=== PATIENT | female | born 1965 | race Caucasian/White ===

== ENCOUNTER 2016-07-24 17:17 | Emergency (ER) | payer OTHER ==
[2016-07-24 18:13] LABS: BASOPHIL% 0.2 % (0-2.5); EOSINOPHIL% 0.3 % (0.0-7.0); HEMATOCRIT 30.6 % (35.0-45.0); HEMOGLOBIN 9.7 gm/dL (12.0-16.0); LYMPHOCYTE# 1.1 X10e3 (1.0-3.5); LYMPHOCYTE% 9.2 % (17.0-45.0); MEAN CORPUSCULAR HEMOGLOBIN 25.5 PG (28-34); MEAN CORPUSCULAR HGB CONC 31.8 g/dL (30-36); MEAN PLATELET VOLUME 6.8 FL (6.5-11.5); MONOCYTE# 1.1 X10e3 (0-1.0); MONOCYTE% 9.2 % (3.0-12.0); NEUTROPHIL# 9.4 X10e3 (1.5-7.1); NEUTROPHIL% 81.1 % (40-75); PLATELET COUNT 455 X10e3 (140-420); RED BLOOD COUNT 3.83 X10e (3.90-5.30); WHITE BLOOD COUNT 11.6 X10e3 (4.0-10.5)
[2016-07-24 18:14] LABS: DIFF IND YES
[2016-07-24 18:38] LABS: ALBUMIN SERUM 2.2 g/dL (3.5-5.0); ALKALINE PHOSPHATASE 86 U/L (32-92); ALT (SGPT) 48 U/L (10-40); AST (SGOT) 32 U/L (10-42); BILIRUBIN, DIRECT <0.1 mg/dL (0.0-0.2); BILIRUBIN,INDIRECT 0.7 mg/dL (0.0-0.9); BILIRUBIN,TOTAL 0.8 mg/dL (0.2-2.0); BLOOD UREA NITROGEN 12 mg/dL (9-23); BUN/CREATININE RATIO 9.23; CARBON DIOXIDE 21 mmol/L (22-31); CHLORIDE 90 mmol/L (100-111); CREATININE SERUM 1.3 mg/dL (0.6-1.4); GLOM FILT RATE Estimated 46.8 mL/min (>60); GLUCOSE FASTING 113 mg/dL (70-110); LIPASE 25 U/L (22-51); POTASSIUM 3.1 mmol/L (3.5-5.1); PROTEIN TOTAL SERUM 6.4 g/dL (6.0-8.3); SODIUM 128 mmol/L (135-145)
[2016-07-24 18:40] LABS: URINE SOURCE CLEAN CATCH
[2016-07-24 18:41] LABS: PLATELET ESTIMATE INCREASED (NORMAL)
[2016-07-24 18:42] LABS: HYPOCHROMIA SL
[2016-07-24 18:55] LABS: URINE APPEARANCE CLEAR; URINE BILIRUBIN NEG (NEG); URINE BLOOD 2+ (NEG); URINE COLOR YELLOW; URINE GLUCOSE NEG (NEG); URINE KETONE 1+ (NEG); URINE LEUKOCYTE ESTERASE TRACE (NEG); URINE NITRATE NEG (NEG); URINE PH 5.5 (5-8); URINE PROTEIN 1+ (NEG); URINE SPECIFIC GRAVITY 1.011 (1.003-1.035); URINE UROBILINOGEN 0.2 MG/DL (NEG)
[2016-07-24 18:58] LABS: CULTURE INDICATED? YES; URINE BACTERIA AUWI 2+ (NEGATIVE); URINE SQUAMOUS EPITHELIAL CELL MOD /[HPF]
== END 2016-07-24 21:17 | disposition home or self-care (01) ==
LOC: CED 17:17
PROVIDERS: Emergency Medicine
DX: K52.9 Noninfective gastroenteritis and colitis, unspecified (principal)
CPT/HCPCS: 36415; 80048; 80076; 81003; 83690; 85025; 87045; 87086; 87177; 87209; 87427; 87493; 87899; 96361; 96374; 99284; J2765

== ENCOUNTER 2016-08-07 03:58 | Inpatient (IN) | payer OTHER ==
--- NOTE | ~2016-08-07 | CO ---
Unit #: [id number] #: [id number] Patient: ALAN LAST [id number] [address] [address] [id number] I MR#: [id number] NAME: ALAN LAST ROOM: 50414 Age: 51 Sex: F Admission Date: 08/07/2016 : 1965 Attending Physician: Hayley Hernandez M.D. Primary Care Physician: No Primary Care Physician Requesting Physician: Hayley Hernandez M.D. Consultation Date: 08/07/2016 CONSULTATION REPORT REASON FOR CONSULTATION C-diff colitis and sepsis. HISTORY OF PRESENT ILLNESS This is a 51-year-old female with no known medical history. She does not routinely see a physician. The patient is not on any routine medications at home. The patient works as a nurse in the palliative care center. The patient reports that several weeks ago she diagnosed herself with left lower extremity erythema and cellulitis and took antibiotics at home that were not prescribed for her or for this infection. The patient then subsequently developed diarrhea and came to [facility] emergency room at the end of June. The patient was presumptively diagnosed with c-diff colitis. However, her c-diff studies were negative. She was sent home on p.o. Flagyl, but continued to have diarrhea. The patient then developed increasing abdominal cramps, sweats and chills and increasing diarrhea with bright red blood per rectum. The patient reports greater than four times per day of stool. The patient did also have some episodes of anorexia. The patient is now admitted through the emergency room. She is noted to have leukocytosis, febrile at 101 degrees Fahrenheit. She is not hypotensive. She is noted to have some acute kidney injury with a creatinine greater than 2.9. This is likely related to dehydration subsequent to diarrhea. The patient also is noted to have elevated lactic acid level of 5. PAST MEDICAL HISTORY None. PAST SURGICAL HISTORY None. SOCIAL HISTORY Not known. ALLERGIES No known drug allergies. CURRENT MEDICATIONS The patient does not take any routine medications, but she did take an unknown antibiotic at home. The patient was recently on Flagyl times 11 days, given to her at the end of June for presumptive c-diff colitis. The patient is currently on IV Flagyl, p.o. vancomycin and was given one dose of IV vancomycin since admission. REVIEW OF SYSTEMS Unit #: [id number] #: [id number] Patient: ALAN LAST The patient was somewhat confused to date earlier this day, however, she is able to answer some questions with help from her family members. Her review of systems is somewhat limited, so please refer to the patient's history of present illness. PHYSICAL EXAMINATION GENERAL: This is an in no apparent distress female who appears alert and calm during my exam. VITALS: Temperature 101 degrees Fahrenheit, pulse 100, blood pressure 149/92, respiratory rate 18. HEENT: Her pupils are equal. Her neck is supple. LUNGS: Clear to auscultation. Diminished in the bases. No wheezes or rhonchi noted. HEART: S1 and S2, with tachycardia. ABDOMEN: Positive bowel sounds. Soft. No organomegaly appreciated. There is no significant distension or tenderness noted at this time. EXTREMITIES: Lower extremity edema, left greater than right, without any open wounds or significant erythema. DIAGNOSTIC STUDIES IMAGING: There is no diagnostic imaging currently on this patient. LABORATORY: BUN 60, creatinine 2.5, sodium 132, potassium 4.7, chloride 102, CO2 15, bilirubin 0.7, AST 23, ALT 15, ammonia 19, lactic acid 5.0, INR 1.8, white blood cell count 17, which is improved from 22,000 on admission, hemoglobin 7.6, hematocrit 25.2, platelets 346. Ova and parasites are pending. Urinalysis is currently pending. Microbiology data, blood cultures are pending. Stool culture is pending. Stool for c-diff is pending. Urine culture on 07/24/2016 urine culture is negative. Stool culture was negative for Shigatoxin culture, campylobacter and clostridium difficile. ASSESSMENT This is a 51-year-old female with no known medical history, but recently took antibiotics for suspected self-diagnosed left lower extremity cellulitis with an antibiotic that was not prescribed to her and was not given to her for this diagnosis. The patient subsequently developed diarrhea and was treated for presumptive c-diff colitis. However, c-diff toxin was negative. The patient did not improve despite 11 days of oral Flagyl. The patient now has continued diarrhea with bright red blood per rectum, lactic acidosis, leukocytosis and acute kidney injury. At this time unclear if the patient actually has c-diff colitis as her initial study was negative. Agree with GI consult as the patient may require a scope. At this time would like to check a CT scan with p.o. contrast only and continue IV Flagyl and p.o. vancomycin. Will follow the patient's stool cultures and c-diff results. The patient's lower extremities appear to be related more to venous stasis and lymphedema rather than cellulitis. At this time would like to avoid other antibiotics as it can make potential c-diff colitis much worse. The patient currently has stable blood pressure and she is more oriented after hydration than when first admitted. However, will need to follow up closely for developing signs of sepsis and shock. This case was discussed in detail with Dr. Joaquin Michel, who would also like the patient to remain in contact isolation at this time. Thank you for allowing us to participate in the care of this patient. Further recommendations to follow pending the patient's clinical course. Unit #: [id number] #: [id number] Patient: ALAN LAST Dictated by... Debi Dietrich A.P.R.N. SLS/gz TD: 08/07/2016 11:16 JOB #: [id number] CONSULTATION REPORT Page 1 of 1 X X CONSULTATION REPORT
--- NOTE | ~2016-08-07 | CO ---
Unit #: [id number] #: [id number] Patient: ALAN RICHARDS [id number] [address] [place], [place] [address] [id number] Alie MR#: [id number] NAME: ALAN RICHARDS ROOM: 308 Age: 51 Sex: F Admission Date: 08/07/2016 : 1965 Attending Physician: Hayley Hernandez M.D. Consultation Date: 08/10/2016 CONSULTATION REPORT REASON FOR CONSULTATION Uncontrolled diabetes and hyperglycemia. 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 She has been seen by the Gastroenterology and Nephrology. She was started on IV Solu-Medrol and the TPN. Two days ago, her blood sugar has been running 300 to 400 mg/dL. I have been asked to see the patient for further management. Note, the patient has no history of type 2 diabetes mellitus in the past. MEDICAL HISTORY Unremarkable in the past. SOCIAL HISTORY No history of tobacco or alcohol. MEDICATIONS Medications at home were none. Current medication list is reviewed. The patient is on Solu-Medrol 60 mg IV q.12, Levemir 15 units at bedtime, Desyrel, Bumex, TPN. REVIEW OF SYSTEMS A 12-point review of systems is completed. Currently, the patient has no nausea, vomiting, or diarrhea. She is tolerating p.o. No fever or chills. No cough or sputum. Rest of the 12-point review of systems is within normal limits. PHYSICAL EXAMINATION GENERAL: She looks comfortable. VITAL SIGNS: Temperature 97.4, pulse 113, respirations 18, blood pressure 139/96. HEENT: EOMI. Pupils are equally reactive to light. NECK: Supple. No thyromegaly noted. CHEST: Good air entry. CVS: Regular rhythm. No murmurs. ABDOMEN: Soft and nontender. Bowel sounds positive. EXTREMITIES: No edema. No ulcers noted. DIAGNOSTIC STUDIES LABORATORY RESULTS: Labs were reviewed. Creatinine is 1.7, sodium 136, BUN is 41, potassium 3.8, chloride 101, CO2 is 24, calcium 7.6. A1c is 9.7. Unit #: [id number] #: [id number] Patient: ALAN RICHARDS ASSESSMENT Type 2 diabetes mellitus, not diagnosed in the past; and worsening of the blood sugars due to the TPN and IV steroids treatment. PLAN Plan is to discontinue Levemir. Start NPH 40 units subcu before each Solu-Medrol dose. Start NovoLog 8 units each meal. Continue supplemental sliding scale. Accu-Cheks a.c. and h.s. Continue all other medications. We will continue to follow the patient for further management. Dictated by... Bijal Rizvi/raymond TD: 08/11/2016 13:23 JOB #: [id number] CONSULTATION REPORT Page 1 of 1 X Allyssa Novoa MD X CONSULTATION REPORT
--- NOTE | ~2016-08-07 | A ---
[facility] Nutrition Therapy DATE: 08/09/16 Patient: ALAN LAST Physician: ABDI Address: [address] Room/Bed: [address], Zip: [place] [address] Admit Date: 08/07/16 Date of : [birth year] Height: 5 6 Weight: 251 114 NUTRITIONAL ASSESSMENT: REASON: TPN nutrition assessment, NPO status in ICU 51 yo female admitted for GI bleed, blood in stool, YAYO PMH: PNA, anxiety, HTN, YAYO, C.dif colitis (recurrent), DM (new?) Anthropometrics: Ht: 66" Wt: 114 kg BMI: 39.9 IBW: 59.1 (193% IBW) Adj.IBW: 81.2 kg Labs: Gluc 160 BUN 39 Creat 1.8 Ca++ 7.5 Alb 1.9 Accuchecks 173 HgbA1C 9.7 GFR 31.6 Meds: TPN (15% dextrose) @ 40 mL/hr, phenergan, solu-medrol, zofran, sodium bicarbonate, pepcid I/O & Bowel function: 5395/1799, last BM 08/09 Skin Integrity: Bruising BUE/ BL knees Edema: 3+ pitting/ pedal/ ankle Estimated Nutrition Needs: 7084-2257 kcals (11-14 kcals/kg Actual BW) 89-118 grams protein (1.5-2.0 grams/kg IBW) Diet: NPO (with sips of H20 and ice chips PRN) Assessment: Chart reviewed, events noted. 51 yo female admitted for blood in stool, n/v found to have severe ulcerative pancolitis and will need a total colectomy per MD note in chart. RD consulted for low albumin, and to provide TPN goal rate. TPN (15%) is currently @ 40 mL/hr, with plans to increase to 60 mL/hr per pharmacy note. Electrolytes and triglycerides are WNL, and glucose levels are elevated. Of note, the pt has an HgbA1C of 9.7 with no h/o DM. RD spoke with the pt at bedside. Pt reportedly has lost weight; however, she is unaware of an amount or time frame of weight loss. Pt denies having any abdominal pain or n/v at this time, and reports having a good appetite prior to admission. Pt denies having any food intolerances or sensitivities. RD briefly explained TPN to the pt. Pt denies having any nutritional questions at this time. Please see recommendations below. Dx: Inadequate protein-energy intake RT clinical condition, colitis AEB TPN, NPO. Stage II-III obesity RT likely poor lifestyle choices AEB BMI 39.9. [facility] Therapy DATE: 08/09/16 Patient: ALAN SHALA Physician: ABDI Address: [address] [place] [address] Room/Bed: [address], Zip: [place] [address] Admit Date: 08/07/16 Date of : [birth year] Height: 5 6 Weight: 251 114 Intervention: 1. TPN 2. Advance diet as tolerated Monitoring, Evaluation and Goals: 1. TPN; provide 80% estimated nutrient needs 2. Improve labs; glucose, BUN, creat, accuchecks, HgbA1C, GFR 3. Oral intake; advance diet, tolerate PO without c/o n/v, diarrhea 4. Weight; promote gradually weight loss towards healthy BMI once appropriate Recommendations: 1. Gradually increase TPN (15% dextrose) to goal of 80 mL/hr (per pharmacy dosing). This will provide: 979 kcals dextrose 1363 kcals total 96 grams protein GUR= 1.8 2. After the first week of hospitalization, consider cycling lipids q 72 hrs to prevent fatty acid deficiency. This will provide an additional 500 kcals on days cycled. 3. Once medically feasible, advance the pt to a clear liquid diet as tolerated and order Ensure clear TID for supplemental protein. If the pt is able to tolerate clear liquids, advance to full liquid diet as tolerated. RD will continue to follow and recommend PO diet as appropriate. 4. If the pt is unable to tolerate PO intake, consider initiating enteral nutrition with Vital HP. RD will follow closely and recommend as appropriate. Pt is at severe nutritional risk. RD will follow hospital course per protocol. Respectfully, LIANA SUN RD, LD [employer] [facility] cc: client file
--- NOTE | ~2016-08-07 | EKG ---
PATIENT: ALAN LAST UNIT #: [id number] Ventricular Rate: 81 BPM Atrial Rate: 81 BPM P-R Interval: 152 ms QRS Duration: 96 ms Q-T Interval: 430 ms QTC Calculation(Bezet): 499 ms P Midnight: 30 degrees Calculated T Midnight: 132 degrees Diagnosis Line: Normal sinus rhythm Diagnosis Line: Minimal voltage criteria for LVH, may be normal Diagnosis Line: variant Diagnosis Line: T wave abnormality, consider anterolateral Diagnosis Line: ischemia Diagnosis Line: Prolonged QT Diagnosis Line: Abnormal ECG Diagnosis Line: When compared with ECG of 12-AUG-2016 16:12, Diagnosis Line: (unconfirmed) Diagnosis Line: T wave inversion more evident in Anterior leads Diagnosis Line: Confirmed by NOLVIA MAYERS MD ([id number]) on 08/13/2016 Diagnosis Line: 10:59:21 PM INTERPRETING MD: RIANA HECTOR
--- NOTE | ~2016-08-07 | EKG ---
PATIENT: ALAN LAST UNIT #: [id number] Ventricular Rate: 96 BPM Atrial Rate: 96 BPM P-R Interval: 154 ms QRS Duration: 96 ms Q-T Interval: 376 ms QTC Calculation(Bezet): 475 ms P Elcho: 26 degrees Calculated R Elcho: -20 degrees Calculated T Elcho: 118 degrees Diagnosis Line: Normal sinus rhythm Diagnosis Line: Poor R wave progression questionable lead position Diagnosis Line: or body habitus Diagnosis Line: T wave abnormality, consider lateral ischemia Diagnosis Line: Abnormal ECG Diagnosis Line: No previous ECGs available Diagnosis Line: Confirmed by PHAN SIDHU MD ([id number]) on 08/14/2016 Diagnosis Line: 10:29:35 AM INTERPRETING MD: NAHUM HECTOR
--- NOTE | ~2016-08-07 | CR72 ---
[facility] A Service of [facility] RADIOLOGY TEXT RESULTS PATIENT: ALAN LAST LOCATION: [facility] 308-01 : [birth year] UNIT #: [id number] AGE: [address]: Hayley Hernandez MD SEX: F ORDER DR: [id number] [facility] [address] [facility]. [place], [place] [address] [id number] MR#: [id number] Acc #: [id number] NAME: ALAN LAST : 1965 SEX: F STUDY DATE/TIME: 08/13/2016 15:07 UNIT: [address] ROOM: [facility] STUDY DESCRIPTION: CR Chest Single View Portable Attending Physician: Hayley Hernandez M.D. Ordering Physician: Hayley Hernandez M.D. Primary Care Physician: Primary Care Physician No MEDICAL IMAGING REPORT This report is preliminary unless electronic signature is present EXAM Portable chest HISTORY Shortness of air and weakness since 08/07/2016 FINDINGS A portable view of the chest was obtained. The heart size and vascularity are normal and the lungs are clear and the bones are unremarkable. The PIC catheter is in good position. IMPRESSION No active disease. Dictated by... Nathan العراقي M.D. THIS IS AN ELECTRONICALLY VERIFIED REPORT Nathan العراقي M.D. at 08/13/2016 3:39 PM FEL/to TD: 08/13/2016 15:32 JOB #: [id number] MEDICAL IMAGING REPORT Page 1 of 1 COPY
--- NOTE | ~2016-08-07 | OR ---
Unit #: [id number] #: [id number] Patient: ALAN LAST [id number] [address] [place], [place] [address] [id number] I MR#: [id number] NAME: ALAN LAST ROOM: 308 Date of Procedure: 08/08/2016 Admission Date: 08/07/2016 Surgeon: Orlando Chand M.D. : 1965 Attending Physician: Hayley Hernandez M.D. OPERATIVE REPORT PREOPERATIVE DIAGNOSES The patient has been found to have evidence of diffuse colitis on a CAT scan. She has presented with history of metabolic acidosis and severe hypoalbuminemia along with diffuse abdominal pain, diarrhea with blood in mucus. Her clostridium difficile toxin is negative and infectious etiology of the stool studies does not show any evidence of enteric pathogens. PROCEDURES PERFORMED Colonoscopy and biopsies. POSTOPERATIVE DIAGNOSES The patient had severe diffuse ulcerative pancolitis extending from the rectum all the way up to cecum. The changes were continuous without any skip areas with deep fissured ulcers and a near total loss of mucosa with islands of hypertrophic mucosa suggestive of pseudopolyps. The overall changes are suggestive of ulcerative colitis of significant standing rather than acute infectious colitis. Biopsies obtained from throughout the colon and sent for histology. The terminal ileum was completely normal. SEDATION USED MAC. RECOMMENDATIONS The patient most likely has longstanding or intermediate standing ulcerative pancolitis, which has gone untreated. We have made certain that there is no infectious etiology by the stool studies done twice. She has significant metabolic acidosis, acute renal insufficiency, and severe malnutrition. The patient is therefore being started on intravenous Solu-Medrol for a rapid relief in the symptoms. If there is little or no response within the next 2 to 3 days, then a total colectomy will be indicated. The significant and severity of the findings were communicated to the patient's sister in the ICU. The patient is also being started on morphine intravenously 3 mg q.3 hours for abdominal pain and is being started on TPN. DESCRIPTION OF PROCEDURE Following detailed explanation of potential risks and complications of a colonoscopy, namely perforation, bleeding, and complications related to sedation, the patient was laid in the left lateral decubitus position. Unit #: [id number] #: [id number] Patient: ALAN LAST The procedure was done in intensive care unit at the patient's bedside. A digital rectal examination was performed, which was normal. Lubricated tip of the Olympus video colonoscope was inserted through the anus and advanced under direct vision. As soon as the scope was inserted, the patient was noted to have changes of severe colitis. Mucosa throughout the entire colon from rectosigmoid and cecum was completely destroyed and deep fissures and ulcers were seen. The changes were continuous on rectosigmoid all the way up to cecum. There being no skip areas. The ulcers are quite deep, coalescent, and mucosa was edematous and friable. There were intervening islands of hypertrophic mucosa suggestive of pseudopolyps. The changes were quite striking. The patient did not have any diverticulosis nor any true polyps. The scope tip was then navigated all the way up to cecum with visualization of the ileocecal valve and the appendiceal orifice. Preparation was good with good visualization and photodocumentation was obtained. Last several inches of terminal ileum also visualized and appeared normal. Successive segments of the colonic mucosa were examined upon withdrawal and above changes were again validated. Biopsies obtained from the normal appearing terminal ileum as well as from the abnormal mucosa throughout the entire colon and sent as separate bottles for histology. The patient did not have any hemorrhoids. The scope was then withdrawn. The patient tolerated the procedure without any postprocedure complications. Dictated by... Bijal Ventura/raymond TD: 08/09/2016 05:30 JOB #: [id number] OPERATIVE REPORT Page 1 of 1 X Orlando Chand MD X PROCEDURE OPERATIVE NOTE
--- NOTE | ~2016-08-07 | CO ---
Unit #: [id number] #: [id number] Patient: ALAN RICHARDS [id number] [facility] [address]. [place], [place] [address] [id number] I MR#: [id number] NAME: ALAN RICHARDS ROOM: [facility] Age: 51 Sex: F Admission Date: 08/07/2016 : 1965 Attending Physician: Hayley Hernandez M.D. Primary Care Physician: No Primary Care Physician Consultation Date: 08/07/2016 CONSULTATION REPORT REASON FOR CONSULTATION Diarrhea and sepsis. HISTORY Ms. Richards is a 51-year-old white female. 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 Apparently she self administered doxycycline for presumed cellulitis of lower extremities. Shortly thereafter she developed watery, profuse diarrhea about 5 days later, which continued until she came to the emergency room a couple weeks ago at [facility]. Somewhere along the communication it seems that either patient mentioned that she had C. diff. colitis or was told that she had C. diff. colitis; however, I do not see any stool study that was done to look for C. diff. toxin, and the patient was discharged from the emergency room on metronidazole or Flagyl. She continued to get worse until a couple days ago. She told her sister that she was dying, and her sister noted her to be lying in a pool of stool with fresh blood and totally confused. She also felt lightheaded and dizzy. She was brought to the emergency room and is found to be in acute kidney injury along with metabolic acidosis. PAST MEDICAL HISTORY She has no significant past medical history or surgical history. MEDICATIONS She is not on any medications. ALLERGIES Does not have any drug allergies. SOCIAL HISTORY She does not smoke, drink alcohol and lives at home by herself. REVIEW OF SYSTEMS A detailed review of organ systems reveals history of profuse diarrhea, as mentioned above. There is history of some cramping in the abdomen, history of mental confusion lately. No history of fevers, chills or rigors. No history of headache, seizures, chest pain or syncope. No history of cough, expectoration or hemoptysis. No history of dysuria, hematuria or polyuria. No history of focal seizures or extremity weakness. The rest of the review of organ systems is unremarkable. PHYSICAL EXAMINATION Unit #: [id number] #: [id number] Patient: ALAN RICHARDS GENERAL: On examination, at the present time she seems to be alert and oriented; however, examination done by Dr. Hernandez suggested that the patient was initially confused. She has mild pallor, there being no icterus, lymphadenopathy or peripheral edema. VITAL SIGNS: Her vital signs indicate a temperature of 98.8, Her pulse is 100 per minute and regular. Respiratory rate is 22, and blood pressure is 136/78. She weighs 242 pounds. Baseline weight is about the same. SKIN: The patient does have erythema of the skin of the lower extremities in the area just above the ankles, and the cutaneous tissue is quite tender here. CARDIOVASCULAR: Normal heart sounds. No murmurs on auscultation. RESPIRATORY: The lungs reveal normal breath sounds, good air entry. ABDOMEN: The abdomen is soft, obese and nontender. The liver and spleen are not palpable. Bowel sounds are normal. DIAGNOSTIC STUDIES LABORATORY: Lab evaluation shows a white count of 22,000. The white count was 11,000 about a week ago. Her hemoglobin is 7.6. MCV is normochromic, (1) , platelet count is 468. Patient had 34% bands about 2 weeks ago when she came to the emergency room. Her serum chemistry shows a BUN and creatinine of 62 and 2.9. Serum potassium on admission was 5.7; it is now 4.1. She has metabolic acidosis with a CO2 of 15, and albumin is 2.5. LFTs are normal. LDH is 259. Lactic acid was 5 on admission, and it is now 1.9. A urinalysis shows urinary tract infection with nitrite positive, leukocyte esterase positive, 1+ blood and 5-10 WBCs. Her stool studies that were sent a couple weeks ago did not show any salmonella, shigella, campylobacter or C. diff.; in fact, all these were absent. IMAGING: A CT scan of the abdomen and pelvis was done a short while ago and shows diffuse colitis. CLINICAL IMPRESSION Patient does seem to have profuse watery diarrhea with volume depletion, acute kidney injury, metabolic acidosis. The C. diff. toxin assay done a couple weeks ago was negative, as were other infectious etiologies. The differential diagnoses here should include inflammatory bowel disease, such as ulcerative colitis, as well as infectious colitis. The patient does need a colonoscopy; however, it would be best to consider that once her metabolic acidosis corrected and the kidney injury is reversed with intravenous fluids. She has currently been started on empiric vancomycin by Dr. Michel, which is being continued. The above findings were discussed with the patient and her sister and her , who were at the bedside. Thank you very much for asking me to see this pleasant patient, and I appreciate the consult. Dictated by... Bijal Ventura/caroline TD: 08/08/2016 13:32 JOB #: [id number] Unit #: [id number] #: [id number] Patient: ALAN RICHARDS CONSULTATION REPORT Page 1 of 1 X Orlando Chand MD X CONSULTATION REPORT
--- NOTE | ~2016-08-07 | CO ---
Unit #: [id number] #: [id number] Patient: ALAN LAST [id number] [facility]. [address] [place], [place] [address] [id number] I MR#: [id number] NAME: ALAN LAST ROOM: 308 Age: 51 Sex: F Admission Date: 08/07/2016 : 1965 Attending Physician: Hayley Hernandez M.D. Primary Care Physician: No Primary Care Physician Consultation Date: 08/12/2016 CONSULTATION REPORT REASON FOR CONSULTATION Abnormal 2D echocardiogram. HISTORY OF PRESENT ILLNESS This is a 51-year-old white female new to our group with no significant past medical history. The patient does not follow with a primary care provider in many years and has no known chronic medical conditions. She is on no home medications. 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 FAMILY HISTORY Significant for congestive heart failure and diabetes but no coronary artery disease or myocardial infarction. Patient presented to the emergency department with complaints of confusion, as well as a large amount of rectal bleeding and nausea, vomiting and diarrhea. She reportedly had a skin abscess versus cellulitis as an outpatient and took an antibiotic. After the antibiotic was taken she developed significant diarrhea with 10 to 20 episodes per day. She came to the emergency department and thought she had C. diff. As she went home, but then her symptoms continued and worsened. She has had a low grade fever. She admits to some dizziness. Her sister found her on the floor where she had fell, but the fall was unwitnessed. There are no complaints of chest pain. She has had some shortness of breath with exertion, which is chronic. She also states that she has had swelling in her legs, which is chronic but no worse. Her symptoms of nausea, vomiting, and diarrhea have been present for about four weeks. She has not been able to eat without getting sick. PAST MEDICAL HISTORY In the emergency department, there was a concern for septic shock and colitis. She was started on antibiotics and stool cultures and blood cultures were obtained. Blood cultures were negative. C. diff was negative. Urinalysis revealed nitrates, blood on leuks but urine culture was negative. Her initial creatinine was elevated at 2.9, which was thought to be an acute kidney injury due to volume loss and dehydration. CT of the abdomen and pelvis was completed with contrast and revealed descending and sigmoid colonic diverticulosis. There was diffuse circumferential colonic wall thickening and pericolic inflammatory stranding involving majority of descending colon. Uterus was enlarged, which could be due to large uterine fibroids but further recommendation was recommended. Gastroenterology was consulted. The patient underwent endoscopy on 08/08/2016. She was found to have diffuse ulcerative pancolitis extending from the rectum all the way up to the cecum. Unit #: [id number] #: [id number] Patient: ALAN LAST Findings were suggestive of ulcerative colitis of the post acute infectious colitis. Biopsies were obtained and sent for histology. The patient was confused and had a sitter during hospitalization but this was discontinued as her altered mental status improved. Nephrology did some lab workup and started the patient on some diuretics, as well as calcium channel izabela, as her blood pressure was mildly elevated. She required some care in the Intensive Care Unit but then was transferred to telemetry. 2D echocardiogram was completed on 08/11/2016, which revealed a technically difficult study but an ejection fraction of 20% to 25%. Cardiology was consulted for cardiomyopathy. Again the patient denies any cardiovascular history. There are no reports of chest pain but she has had some swelling, as well as shortness of breath with exertion. EKG reveals no ischemic changes. PAST MEDICAL HISTORY No significant past medical history. Nonsmoker. PAST SURGICAL HISTORY None. HOME MEDICATIONS None. ALLERGIES No known drug allergies. 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 She is a lifetime nonsmoker. There are no reports of alcohol or illicit drug use. FAMILY HISTORY Her mother had congestive heart failure and diabetes. There are no reports of ischemic heart disease or myocardial infarction. REVIEW OF SYSTEMS Ten point review of system is negative except for details noted above in HPI. PHYSICAL EXAMINATION VITAL SIGNS: Temperature 98.1, pulse 102, blood pressure 133/84. CONSTITUTIONAL: This is a 51-year-old white female who is obese, in no acute distress. SKIN: Warm and dry. NECK: Supple. No jugular venous distention. No hepatojugular reflux. Normal carotid upstrokes. No carotid bruits auscultated. HEART: S1 and S2. Regular rate and rhythm. No murmur, rubs or gallops. LUNGS: Bilateral breath sounds have good air entry throughout all lung ryan. Respirations even and unlabored. No rales, rhonchi or wheezes. ABDOMEN: Obese, soft, nontender, nondistended. Positive bowel sounds auscultated x4 quadrants. No ascites noted. EXTREMITIES: Lower extremities have 2+ pitting edema. DP and PT pulses 2+. Capillary refill after three seconds. DIAGNOSTIC STUDIES LABORATORY STUDIES: Blood cell count 14.9, hemoglobin 9.2, hematocrit 28.8, platelets 297, sodium 134, potassium 3.4, chloride 99, CO2 26, BUN 37, creatinine 1.2, glucose 224, magnesium 1.7, albumin 2.4, total protein 5.0, amylase 51, lipase 53, A1c 9.7, INR 1.3. Urinalysis positive for Unit #: [id number] #: [id number] Patient: ALAN LAST. Blood on leuks. Blood cultures negative. C. diff negative. Urine culture with colony count less than 10,000. IMAGING STUDIES: CT of the abdomen and pelvis with contrast on 08/07/2016 revealed descending and sigmoid colonic diverticulosis. If he is circumferential colonic wall thickening, empiric colonic inflammatory stranding involving the majority of the descending colon. No stones are hydronephrosis. Normal appendix. Markedly enlarged uterus, which could be secondary to large uterine fibroids. Further characterization with nonemergent pelvic ultrasound or MRI recommended. Small fat containing umbilical hernia. Suspected bilateral L5 pars defects resulting in minimal grade 1 anterolisthesis of L5 on S1. CARDIOVASCULAR STUDIES: Electrocardiogram revealed sinus tachycardia with a ventricular rate of [address] or T wave changes. QTC 467 msec. 2D echocardiogram on 08/11/2016 was a technically difficult study that revealed an ejection fraction of 20% to 25%. No pericardial effusion. Valves not well visualized. IMPRESSION 1. Abdominal pain with diarrhea, status post colonoscopy on 08/08/2016, which revealed probable ulcerative colitis. 2. Acute kidney injury, improved. 3. Diabetes mellitus type 2, newly diagnosed. 4. Probable hypertension. 5. 2D echocardiogram, technically difficult study. Ejection fraction 20% to 25%. 6. Obesity. 7. Anemia. 8. Hypokalemia. 9. Protein deficiency. 10. TME, resolved. PLAN 1. The presented to the hospital with complaints of abdominal pain, vomiting, diarrhea, and altered mental status. She was admitted and underwent gastroenterology workup. Colonoscopy was suggestive of ulcerative colitis. She was started on steroids and treated in the Intensive Care Unit. 2. Nephrology was consulted due to acute kidney injury. Creatinine levels have improved. 3. Cardiology was consulted due to ejection fraction of 20% to 25% on 2D echocardiogram. The study was technically difficult but EF is likely low. 4. The patient has been started on a beta-izabela and YULIET inhibitor with parameters. 5. Fasting lipid profile and TSH will be obtained. 6. Oral diltiazem will be discontinued due to low ejection fraction. 7. Initial EKG reveals no ischemic changes and the patient denies chest pain. Will trend cardiac enzymes and EKG. 8. Once medically stable the patient will need a cardiac Unit #: [id number] #: [id number] Patient: ALAN LAST. 9. She has been instructed to follow up in the office and to take medications as prescribed. 10. She would benefit from weight loss, as well as aggressive lifestyle modifications. Dictated by... Viry Grimes APRN for Bijal Patel TD: 08/13/2016 06:55 JOB #: [id number] CONSULTATION REPORT Page 1 of 1 X X CONSULTATION REPORT
--- NOTE | ~2016-08-07 | HP ---
Unit #: [id number] #: [id number] Patient: ALAN LAST [id number] [address] [address] [id number] I MR#: [id number] NAME: ALAN LAST ROOM: 416[address] Age: 51 Sex: F Admission Date: 08/07/2016 : 1965 Attending Physician: Hayley Hernandez M.D. Primary Care Physician: No Primary Care Physician HISTORY AND PHYSICAL CHIEF COMPLAINT Diarrhea and confusion. HISTORY OF PRESENT ILLNESS The patient is a 51-year-old with no past medical history, with a recent c-diff diarrhea and colitis, admitted because of diarrhea. The patient currently is confused and most of the history is taken from the sister who is at bedside. According to the sister, the patient came to the emergency room 12 days ago and was diagnosed with c-diff. She was given Flagyl and discharged home. Later the patient developed a severe diarrhea, but the patient refused to come to the hospital. She never saw a doctor before. She is scared of going to doctors and hospitals. Also, she was confused since three days. She could not drive her car. She was sleeping a lot since a few days. She also has diarrhea 10-12 bowel movements per day. Also noticed blood in the stool last night. She has had fever since one day. She has nausea and vomiting since one day. She also complains of abdominal pain, diffuse since a few days. She felt dizzy. No passing out. No weakness, numbness or tingling. She also complained of leg swelling since more than one week because she was not able to ambulate as before. PAST MEDICAL HISTORY None. She never sees a doctor. PAST SURGICAL HISTORY None. SOCIAL HISTORY No alcohol. No drugs. No smoking. FAMILY HISTORY Positive for patient. ALLERGIES No known drug allergies. CURRENT MEDICATIONS None. REVIEW OF SYSTEMS No skin rash. No chest pain. No shortness of breath. Reviewed 12 points with her sister, which are negative except as per history of present illness. Unit #: [id number] #: [id number] Patient: ALAN LAST PHYSICAL EXAMINATION GENERAL: The patient is a 51-year-old lying in bed, alert, oriented to self, confused. VITALS: Temperature 101, pulse 100, respiratory rate 19, blood pressure 152/101. HEENT: Pupils equal and reacting to light and accommodation. Dry mucosa present. NECK: Supple. LUNGS: Clear to auscultation. No rhonchi. No crackles. HEART: S1 and S2 heard. Tachycardia present. ABDOMEN: Mildly distended. Mildly tender diffusely. No guarding. No rigidity. EXTREMITIES: Bilateral pitting edema present. NEUROLOGIC: Moving all extremities. Alert, but confused. Oriented to self. DIAGNOSTIC STUDIES LABORATORY: INR 1.8, white blood cell count 22.0, hemoglobin 9.0, platelets 458, lactic acid 5.0, sodium 131, potassium 5.7, carbon dioxide 18, BUN 62, creatinine 2.9. Liver enzymes normal. Albumin 2.5, ammonia 19. ASSESSMENT The patient is a 51-year-old admitted because of diarrhea and confusion. 1. Acute septic shock from c-diff colitis with severe sepsis. The patient was given antibiotics and fluid bolus. She will continue with IV fluids at 30 ml/kg/hour for two hours. Reassess her vitals and give more fluids if needed. Blood cultures have been sent. Repeat lactic acid will be sent. 2. Severe recurrent c-diff colitis. The patient will get vancomycin and Flagyl. I am going to ask GI and infectious disease to see her. Keep n.p.o. 3. Acute kidney injury secondary to severe diarrhea and prerenal. The patient is receiving IV fluids. 4. Hyperkalemia secondary to acute kidney injury. I am going to repeat BMP and treat if needed. 5. Toxic metabolic encephalopathy with severe acute delirium secondary to sepsis. The patient is threatening to leave, but she is not in a position to sign AMA because of confusion. Currently she is on 72-hour hold. 6. Metabolic acidosis secondary to severe fluid volume loss and lactic acidosis. Continue with IV fluids. 7. Lactic acidosis from severe sepsis. Continue with IV fluids. 8. Moderate protein malnutrition. The patient is currently n.p.o. I will ask the dietitian to see her later, once she is tolerating a diet. 9. GI bleed secondary to c-diff colitis. Currently resolved. Monitor. 10. Anemia secondary to hbrgr-zy-sedonag blood loss. I will treat her iron deficiency. Monitor her hemoglobin. 11. Discussed with the sister. Currently the patient is on 72-hour hold and a sitter. Critical care time taken is 35 minutes. Dictated by Hayley Hernandez M.D. Unit #: [id number] #: [id number] Patient: ALAN LAST KJ/gz TD: 08/07/2016 09:44 JOB #: [id number] HISTORY AND PHYSICAL Page 1 of 1 X Hayley Hernandez MD X HISTORY AND PHYSICAL
--- NOTE | ~2016-08-07 | CO ---
Unit #: [id number] #: [id number] Patient: ALAN LAST [id number] [address] [address] [id number] I MR#: [id number] NAME: ALAN LAST ROOM: 308 Age: 51 Sex: F Admission Date: 08/07/2016 : 1965 Attending Physician: Hayley Hernandez M.D. Primary Care Physician: Primary Care Physician No Consultation Date: 08/07/2016 CONSULTATION REPORT REASON FOR CONSULTATION Elevated creatinine level. HISTORY OF PRESENT ILLNESS The patient is a 51-year-old white female, who did not have any previous medical followups or an established physician, came in with diarrhea. The patient was recently in the emergency room in June and her creatinine level was noted to be 1.3. She comes back again with diarrhea and volume depletion. The patient has reported of 10 to 12 bowel movements per day. She also reports of vomiting. The patient has also complain of abdominal pain. No history of fevers or chills. Creatinine level is noted to be 2.9. PAST SURGICAL HISTORY Unremarkable. SOCIAL HISTORY Does not drink. Does not smoke. MEDICATIONS At home, none. FAMILY HISTORY Unremarkable for end-stage renal disease. ALLERGIES No known drug allergies. REVIEW OF SYSTEMS CVS: No chest pain. RESPIRATORY: No cough or expectoration. GI: As above. PHYSICAL EXAMINATION GENERAL: The patient is awake, alert, and oriented. VITAL SIGNS: The temperature is 101, the blood pressure is 150/100. HEENT: Head is atraumatic. Extraocular movements are intact. NECK: Supple. There is no elevation of the JVD. CHEST: Clear. HEART: S1, S2 audible. There is no S3, no S4. ABDOMEN: Soft. There is no organomegaly. No guarding. No rigidity. No rebound tenderness. EXTREMITIES: There is 1 to 2+ edema. Unit #: [id number] #: [id number] Patient: ALAN LAST DIAGNOSTIC STUDIES LABORATORY RESULTS: Hemoglobin is 9, WBC is 22, platelets of 458. Lactic acid on admission is 5. Sodium 131, potassium 5.7, CO2 of 18, BUN 62, creatinine 2.9, albumin is 2.5. IMPRESSION 1. Acute kidney injury likely prerenal azotemia secondary to intravascular volume depletion. The patient is at risk of acute tubular necrosis. We will hydrate her and follow the renal function. No acute need for dialysis. 2. Non-anion gap metabolic acidosis likely secondary to diarrhea and underlying acute kidney injury. 3. Anemia. We will follow the patient and we will need GI workup. Dictated by... Arron Bennett M.D. RA/raymond TD: 08/08/2016 23:54 JOB #: [id number] CONSULTATION REPORT Page 1 of 1 X Arron Bennett MD X CONSULTATION REPORT
--- NOTE | ~2016-08-07 | EKG ---
PATIENT: ALAN LAST UNIT #: [id number] Ventricular Rate: 105 BPM Atrial Rate: 105 BPM P-R Interval: 166 ms QRS Duration: 84 ms Q-T Interval: 354 ms QTC Calculation(Bezet): 467 ms P [place]: 48 degrees Calculated R [place]: 30 degrees Calculated T [place]: 52 degrees Diagnosis Line: Sinus tachycardia Diagnosis Line: Otherwise normal ECG Diagnosis Line: No previous ECGs available Diagnosis Line: Confirmed by PHAN SIDHU MD ([id number]) on 08/08/2016 Diagnosis Line: 8:01:05 PM INTERPRETING MD: NAHUM HECTOR
--- NOTE | ~2016-08-07 | CO ---
Unit #: [id number] #: [id number] Patient: ALAN RICHARDS [id number] [address] [place], [place] [address] [id number] I MR#: [id number] NAME: ALAN RICHARDS ROOM: 308 Age: 51 Sex: F Admission Date: 08/07/2016 : 1965 Attending Physician: Hayley Hernandez M.D. CONSULTATION REPORT HISTORY OF PRESENT ILLNESS Ms. Richards is a 51-year-old, white female with what appears to be severe ulcerative colitis from the cecum to rectum. We were asked to see her for possible total colectomy. The patient has been recently started on TPN and steroids and has made some positive response. I have explained to her concerning the colectomy and she wants to defer per Dr. Roberts. PAST MEDICAL HISTORY She had no previous episodes of colitis that we know of, although she has been having some symptoms consistent with this over the last few months. She has also had some rectal bleeding for the last few months, which was not picked up on. This had not been treated because the patient thought it was hemorrhoids. C diff toxin has been negative. She presented to the hospital at this time with sepsis, but now has made good improvement with antibiotics. PHYSICAL EXAMINATION On examination, her abdomen is soft and nontender. No masses. No peritoneal signs at present. She is alert and oriented, taking some liquids. PLAN At this time. We will defer to Dr. Roberts as far as her treatment goes. We will be available if indeed colectomy is necessary. This has been explained to the patient. She understands. Dictated by... Bijal Seth/raymond TD: 08/10/2016 07:34 JOB #: [id number] Unit #: [id number] #: [id number] Patient: ALAN RICHARDS CONSULTATION REPORT Page 1 of 1 X Daniel Steve MD CONSULTATION REPORT
--- NOTE | ~2016-08-07 | CR72 ---
[facility] A Service of [facility] & [facility] RADIOLOGY TEXT RESULTS PATIENT: ALAN LAST LOCATION: [place] [address] : [birth year] UNIT #: [id number] AGE: [address]: Hayley Hernandez MD SEX: F ORDER DR: [id number] [facility] [address] [facility]. [place], [place] [address] [id number] I MR#: [id number] #: [id number] NAME: ALAN LAST : 1965 SEX: F STUDY DATE/TIME: 08/08/2016 5:35 UNIT: [facility] ROOM: [facility] STUDY DESCRIPTION: CR Chest Single View Portable Attending Physician: Hayley Hernandez M.D. Ordering Physician: Nakul Gurrola M.D. Primary Care Physician: No Primary Care Physician MEDICAL IMAGING REPORT This report is preliminary unless electronic signature is present EXAM Portable chest 08/08/2016 HISTORY Dyspnea, rectal bleeding for 2 days. COMPARISON 08/07/2016 FINDINGS Portable view of the chest was obtained. The heart size and vascularity are normal. The lungs are clear and the bones are unremarkable. IMPRESSION No active disease. Dictated by... Nathan العراقي M.D. THIS IS AN ELECTRONICALLY VERIFIED REPORT Nathan العراقي M.D. at 08/08/2016 8:15 AM TUCKER/mustapha TD: 08/08/2016 07:14 JOB #: [id number] MEDICAL IMAGING REPORT Page 1 of 1 COPY
--- NOTE | ~2016-08-07 | FU ---
[facility] Nutrition Therapy DATE: 08/12/16 Patient: ALAN LAST Physician: ABDI Address: [address] [facility] Room/Bed: [address] [place] [address], Zip: [place] [address] Admit Date: 08/07/16 Date of : 61 Height: 5 6 Weight: 251 114 NUTRITION MONITORING/FOLLOW-UP: Reason: Follow up Anthropometrics: Wt 08/12: 112.1 kg Labs: Na+ 134 K+ 3.4 Cl- 99 Gluc 224 BUN 37 Ca+ 7.5 Alb 2.4 Phos 1.5 Accuchecks 172-254 Meds: Prednisone, novolog, bumex, protonix, zofran I&O's: 1320/2357, last BM 08/12 (loose stools noted) Skin: reviewed, no changes. Edema: BLE 3+ Diet: Consistent carbohydrate/ 1500 kcal Assessment: Chart reviewed, events. TPN was discontinued yesterday 08/11. Pt is currently ordered a consistent carbohydrate/ [address] spoke with the pt, who reports she is consuming 50% of her meals. Pt reports tolerance of diet; however, she does report having diarrhea. RD briefly discussed the pt's diet with her, and pt denied the need for further diet education, asking RD to order food for her instead. Please see recommendations below. Dx: 1) Inadequate protein-energy intake RT clinical condition AEB 50% intake of meals reported by the pt- ACTIVE WITH UPDATED EVIDENCE 2) Stage II-III obesity RT likely poor lifestyle choices AEB BMI 39.9. Intervention: 1. Glucerna as needed for supplemental nutrition 2. Low fiber diet if diarrhea does not improve Monitoring, Evaluation and Goals: 1. TPN- D/C'D 2. Improve labs; glucose (not met), BUN (IN PROGRESS), creat (MET), GFR (MET) 3. Oral intake; advance diet (MET), tolerate PO without symptoms of GI intolerance (NOT MET D/T NOTED DIARRHEA) 4. Weight; promote gradual weight loss towards a healthy BMI once appropriate- IN PRORGESS 5. GI; promote regular GI function- [facility] Nutrition Therapy DATE: 08/12/16 Patient: ALAN LAST Physician: ABDI Address: [address] [place] [address] Room/Bed: [address] [place] [address], Zip: [place] [address] Admit Date: 08/07/16 Date of : [birth year] Height: 5 6 Weight: 251 114 Recommendations: 1. Continue consistent carbohydrate/ 1500 kcal diet per MD orders. If the pt continues to have diarrhea, consider adding a low fiber diet restriction. 2. Replete electrolytes to WNL noting low K+, Na+/ 3. If the pt's intake does not improve, order Glucerna BID. Status: Pt is at mild-moderate nutritional risk. Respectfully, LIANA SUN RD, LD [facility] cc: client file
--- NOTE | ~2016-08-07 | CT4 ---
[facility] A Service of [facility] RADIOLOGY TEXT RESULTS PATIENT: ALAN LAST LOCATION: [facility] 308-01 : [birth year] UNIT #: [id number] AGE: [address]: Hayley Hernandez MD SEX: F ORDER DR: [id number] [place] [id number] [facility]. [place], [place] [address] [id number] I MR#: [id number] Acc #: [id number] NAME: ALAN LAST : 1965 SEX: F STUDY DATE/TIME: 08/07/2016 17:42 UNIT: [facility] ROOM: [facility] STUDY DESCRIPTION: CT Abd and Pelv Wo Cont Attending Physician: Hayley Hernandez M.D. Ordering Physician: Neli Martines M.D. Primary Care Physician: No Primary Care Physician MEDICAL IMAGING REPORT This report is preliminary unless electronic signature is present EXAM CT abdomen and pelvis without contrast. DATE OF EXAM 08/07/2016 HISTORY 51-year-old female with rectal bleeding and abdominal pain beginning today. History of C. difficile colitis. Nausea, vomiting, diarrhea for 2 weeks. COMPARISON None. TECHNIQUE Routine helical scan performed through the abdomen and pelvis without oral or IV contrast. Coronal and sagittal reformatted images. This CT exam was performed with one or more of the following radiation dose reduction techniques: automatic exposure control, adjustment of mA and/or kV according to patient size, and iterative reconstruction. FINDINGS Visualized lung bases are unremarkable. The liver, spleen, pancreas, gallbladder, both adrenal glands, and both kidneys are in normal limits. No urinary tract stones or hydronephrosis. Abdominal aorta normal in course and caliber. Small bowel is unremarkable without obstruction. Appendix is normal. There is descending and sigmoid colonic diverticulosis. There is circumferential colonic wall thickening involving majority of the descending colon with mild pericolonic inflammatory stranding. This could be secondary to infectious or inflammatory colitis versus diverticulitis. No perforation or abscess. There is a small fat-containing umbilical hernia. [facility] A Service of [facility] RADIOLOGY TEXT RESULTS PATIENT: ALAN LAST LOCATION: [place] 308-01 : [birth year] UNIT #: [id number] AGE: [address]: Hayley Hernandez MD SEX: F ORDER DR: The urinary bladder is collapsed around a Motley catheter. The uterus is markedly enlarged, measuring at least 11.6 x 15.6 x 17 cm in size. That this may be secondary to large uterine fibroids, but further characterization with nonemergent ultrasound or MRI suggested. Adnexa are unremarkable. No free pelvic fluid. No acute bony abnormality. There are suspected bilateral L5 pars defects with minimal grade 1 anterolisthesis of L5 on S1. IMPRESSION 1. Descending and sigmoid colonic diverticulosis. There is diffuse circumferential colonic wall thickening and pericolonic inflammatory stranding involving majority of the descending colon. This may be secondary to infectious or inflammatory colitis. Acute diverticulitis may also be considered. No evidence of perforation or abscess. 2. Normal appendix. 3. Negative for urinary tract stones or hydronephrosis. 4. Markedly enlarged uterus, detailed above. This may be secondary to large uterine fibroids, but further characterization with nonemergent pelvic ultrasound or MRI is recommended. 5. Small fat-containing umbilical hernia. 6. Suspected bilateral L5 pars defects resulting in minimal grade 1 anterolisthesis of L5 on S1. Dictated by... Itz Sanders M.D. THIS IS AN ELECTRONICALLY VERIFIED REPORT Itz Sanders M.D. at 08/11/2016 7:47 AM Dimitri TD: 08/08/2016 01:04 JOB #: [id number] MEDICAL IMAGING REPORT Page 1 of 1 COPY
--- NOTE | ~2016-08-07 | CR72 ---
[facility] A Service of [facility] & [facility] RADIOLOGY TEXT RESULTS PATIENT: ALAN LAST LOCATION: [address] : [birth year] UNIT #: [id number] AGE: [address]: Hayley Hernandez MD SEX: F ORDER DR: [id number] [facility] [address] [facility]. [place], [place] [address] [id number] I MR#: [id number] Acc #: [id number] NAME: ALAN LAST : 1965 SEX: F STUDY DATE/TIME: 08/07/2016 9:37 UNIT: [facility] ROOM: [address] STUDY DESCRIPTION: CR Chest Single View Portable Attending Physician: Hayley Hernandez M.D. Ordering Physician: Hayley Hernandez M.D. Primary Care Physician: Primary Care Physician No MEDICAL IMAGING REPORT This report is preliminary unless electronic signature is present EXAM Portable chest HISTORY Rectal bleeding, elevated white blood cell count for 2 days. FINDINGS A portable view of the chest was obtained. The heart size and vascularity are normal. The lungs are clear. The bones are unremarkable. IMPRESSION No active disease. Dictated by... Nathan العراقي M.D. THIS IS AN ELECTRONICALLY VERIFIED REPORT Nathan العراقي M.D. at 08/07/2016 4:54 PM TUCKER/arsenio TD: 08/07/2016 11:54 JOB #: [id number] MEDICAL IMAGING REPORT Page 1 of 1 COPY
--- NOTE | ~2016-08-07 | CO ---
Unit #: [id number] #: [id number] Patient: ANNIKA LAST [id number] [address] [address] [id number] I MR#: [id number] NAME: ANNIKA LAST ROOM: 308 Age: 51 Sex: F Admission Date: 08/07/2016 : 1965 Attending Physician: Hayley Hernandez M.D. Consultation Date: 08/15/2016 CONSULTATION REPORT REASON FOR CONSULTATION Followup. DISCUSSION Ms. Annika Last is a 51-year-old female, seen in room 308, bed 1 on 08/15/2016. The patient was pleasant and cooperative during interview, lying comfortably in bed. The patient was able to answer questions coherently. Reported suffering from depression, anxiety and at times, confusion, and agreeable for her sister to be a power of manufacturing engineer assembly due to her medical condition and at times, getting confused. The patient reports she is making progress, but still having some problem with the anxiety, currently on no anti-anxiety medication. The patient is agreeable to try Vistaril. The patient denied any history of alcohol abuse or any illicit drug abuse. Denied any psychotic symptom. Pleasant and cooperative. REVIEW OF SYSTEMS A complete review of systems is unremarkable. MENTAL STATUS EXAMINATION Vital signs; temperature 98.0, pulse 89, respirations 18, blood pressure 108/46, oxygen saturation 96%. General appearance; the patient dressed casually, morbidly obese, lying comfortably in bed. Attention span and concentration, fair. Speech; regular rate and coherent. Oriented in time, place, and person. Mood and affect, labile. Thought process, coherent. Thought content; the patient denied any thoughts of harming self or others, or any psychotic symptom. Recent and remote memory, fair. Language, intact. Fund of knowledge, fair to slightly impaired. Insight and judgment, fair to slightly impaired. DIAGNOSES Psychiatric: Major depressive disorder, recurrent, moderate, F33.2; anxiety disorder, not otherwise specified, F40.01. ASSESSMENT AND PLAN 1. Supportive psychotherapy and psychoeducation provided to the patient. 2. Educated about benefits and side effects of medication and course and prognosis of illness. 3. Advised to continue with Vistaril 25 mg b.i.d. for anxiety, and if needed, consider SSRI and also advised pediatric social worker to get a power of manufacturing engineer assembly for the patient to make medical decisions. Dictated by... Gideon Mckeon M.D. Unit #: [id number] #: [id number] Patient: ANNIKA LAST SHAVON/florl TD: 08/16/2016 14:44 JOB #: [id number] CC: Luke/cris Please Delete CONSULTATION REPORT Page 1 of 1 X Gideon Mckeon MD X CONSULTATION REPORT
--- NOTE | ~2016-08-07 | DS ---
Unit #: [id number] #: [id number] Patient: ALAN LAST [id number] [address] [address] [id number] I MR#: [id number] NAME: ALAN LAST ROOM: 308 Age: 51 Sex: F Admission Date: 08/07/2016 : 1965 Discharge Date: Attending Physician: Hayley Hernandez M.D. Primary Care Physician: No Primary Care Physician DISCHARGE SUMMARY DISCHARGE DIAGNOSES 1. Septic shock. 2. Severe proctocolitis. 3. History of Clostridium difficile colitis. 4. Acute kidney injury. 5. Hyperkalemia. 6. Toxic metabolic encephalopathy. 7. Metabolic acidosis. 8. Moderate protein malnutrition. 9. Lactic acidosis. 10. Coagulopathy likely secondary to sepsis. 11. Gastrointestinal bleed. 12. Anemia secondary to acute on chronic acute blood loss. 13. Noncompetent to medical decisions as per Dr. Mckeon. 14. Noncompliance with medical advice. 15. Acute severe diarrhea secondary to colitis. 16. Acute systolic heart failure. 17. Diabetes mellitus type 2 uncontrolled. 18. Vitamin D deficiency 19. Likely mild depression. 20. Hypokalemia. 21. Hypomagnesemia. 22. 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 23. Morbid obesity. CONSULTATIONS 1. Dr. Orlando Chand. 2. Dr. Bennett. 3. Dr. Steve. 4. Dr. Novoa. PROCEDURES The patient had colonoscopy which shows diffuse ulcerative pancolitis. ALLERGIES None. DISCHARGE MEDICATIONS 1. Prednisone 40 mg p.o. daily for four weeks. 2. Trazodone 50 mg at bedtime q.h.s. p.r.n. sleep. 3. Coreg 6.25 mg p.o. b.i.d. 4. Lisinopril 5 mg p.o. daily. 5. Humulin N U-100 20 units subcu at 6 a.m. Give prior to prednisone. 6. NovoLog high dose sliding scale a.c. and h.s. Unit #: [id number] #: [id number] Patient: ALAN LAST 7. NovoLog 5 units subcu three times daily with meals. 8. Asacol 800 mg three times daily before meals. 9. Multivitamin one tablet daily. 10. Potassium 40 mEq p.o. daily. 11. Vitamin D 1,000 p.o. daily. 12. Vistaril 25 mg p.o. b.i.d. 13. Bumex 2 mg p.o. b.i.d. HOSPITALIZATION COURSE A 51 year old admitted because of confusion and diarrhea. Septic shock from severe ulcerative colitis: The patient was seen by Dr. Chand. The patient had colonoscopy which shows ulcerative colitis all her colon. Patient initially started on broad-spectrum antibiotics. Currently, she is off antibiotics. She will continue with prednisone for four more weeks and also she is on Asacol. The patient will follow Dr. Chand as an outpatient. Acute kidney injury with hyperkalemia: The patient is seen by [facility]. Currently, creatinine is stable. The patient is on Bumex. Hyperkalemia resolved. Toxic metabolic encephalopathy from sepsis: Patient still confused, noncompetent, according to psychiatrist. The patient needs supportive care. Severe diarrhea secondary to colitis: Continue with Asacol and prednisone. Moderate protein malnutrition: Continue with high protein diet as tolerated as per asbestos shingle inspector. GI bleed secondary to severe ulcerative colitis: The patient's hemoglobin is 7.8. No active bleeding, resolved. Electrolyte imbalance with hypokalemia and hypermagnesemia, replaced, currently normal. Diabetes mellitus type 2 uncontrolled: The patient sees Dr. Novoa. Her insulin is adjusted. Currently, blood sugars are controlled. Acute systolic heart failure: Ejection fraction 20 to 25%. The patient was seen by Cardiology. The patient had a cardiac cath which shows normal coronaries. The patient currently is on lisinopril and Coreg. Continue with them and follow with Dr. Larson. The patient will be discharged to rehab. Follow with Dr. Chand in three weeks' time. Follow with Dr. Novoa in three week's time. Follow with Dr. Larson on October 17. Discharge plan has been discussed with the sister who will be POA. She is applying for it as the patient is noncompetent as per Dr. Mckeon. Also, has mild autism and cannot make good decisions according to the sister. farmworker vegetable and correctional case manager are on case. Discharge time taken is 45 minutes. Dictated by... Hayley Hernandez M.D. Unit #: [id number] #: [id number] Patient: ALAN LAST/mamie TD: 08/15/2016 12:39 JOB #: [id number] DISCHARGE SUMMARY Page 1 of 1 X Hayley Hernandez MD X DISCHARGE SUMMARY
--- NOTE | ~2016-08-07 | CO ---
Unit #: [id number] #: [id number] Patient: ANNIKA RICHARDS [id number] [facility] [address] [place], [place] [address] [id number] I MR#: [id number] NAME: ANNIKA RICHARDS ROOM: 308 Age: 51 Sex: F Admission Date: 08/07/2016 : 1965 Attending Physician: Hayley Hernandez M.D. Consultation Date: 08/14/2016 CONSULTATION REPORT REASON FOR CONSULTATION Depression, anxiety, and confusion. HISTORY OF PRESENT ILLNESS Ms. Annika Richards is a 51-year-old white female, seen in room 308, bed 1 on 08/14/2016 at [facility]. The patient was pleasant and cooperative during interview, moderately obese, lying comfortably in bed, dressed in hospital attire. The patient's sister was at the bedside. The patient admitted that she was having lot of problems while in the hospital and getting medication that is making her confused and forgetful, and at times, unable to think clearly. The patient reported that she is in agreement that her sister to be her power of finance attorney to make her healthcare decisions while she is getting her care because of at times being confused and unable to make informed decisions. The patient reported having problem with the anxiety, feeling sad, depressed, but denied any suicidal or homicidal ideation. Denied any psychotic symptom. The patient denied any use of any drugs or alcohol. Has a good support system. The patient's vital signs; temperature 97.6, pulse 86, respirations 18, blood pressure 112/51, oxygen saturation 97%. PAST PSYCHIATRIC HISTORY Unremarkable except upon admission, confusion and altered mental status. MEDICAL HISTORY Remarkable for obesity; acute aseptic shock from C. diff colitis; hypokalemia; metabolic acidosis; lactic acidosis; acute kidney injury; toxic-metabolic encephalopathy; coagulopathy secondary to sepsis; GI bleed; diabetes mellitus type 2, uncontrolled; vitamin D. MEDICATION HISTORY The patient is on prednisone, trazodone 50 mg at bedtime, Coreg, lisinopril, Humulin, NovoLog, Os-David, multivitamin, potassium, vitamin D, Bumex. FAMILY HISTORY AND SOCIAL HISTORY The patient has a good support system from family. No history of abuse. No history of any substance abuse. REVIEW OF SYSTEMS A complete review of systems is unremarkable except as mentioned above. MENTAL STATUS EXAMINATION Vital signs; temperature 97.6, pulse 86, respirations 18, blood pressure 112/51, oxygen saturation 97%. General appearance; the patient dressed in Unit #: [id number] #: [id number] [facility]. Vital signs; please see above. Attention span and concentration, fair. Speech; regular rate and coherent. Oriented in time, place, and person. Mood and affect were labile. Thought process, coherent. Thought content; the patient denied any thoughts of harming self or others. Recent and remote memory, fair. Language, intact. Fund of knowledge, fair to slightly impaired. Insight and judgment, fair to slightly impaired. DIAGNOSES Psychiatric: Major depressive disorder, recurrent, moderate, F33.2; anxiety disorder, not otherwise specified, F40.01; delirium, F05, resolved. Secondary diagnosis: Deferred. Medical diagnosis: Please refer to H and P. Stressors: Psychosocial stressor. ASSESSMENT AND PLAN 1. Supportive psychotherapy and psychoeducation provided to the patient. 2. Educated about benefits and side effects of medication and course and prognosis of illness. 3. Advised to continue with current medication with a plan to add Vistaril 25 mg b.i.d. and consider medication such as SSRI if needed. Please feel free to call if any questions, #[phone]. Also, recommending social worker psychiatric consult for power of finance attorney. Dictated by... Bijal Dawson/raymond TD: 08/16/2016 14:55 JOB #: [id number] CONSULTATION REPORT Page 1 of 1 X Gideon Mckeon MD X CONSULTATION REPORT
[2016-08-07 06:01] LABS: BASOPHIL% 0.1 % (0-2.5); EOSINOPHIL% 0.2 % (0.0-7.0); HEMATOCRIT 29.6 % (35.0-45.0); LYMPHOCYTE# 0.6 X10e3 (1.0-3.5); LYMPHOCYTE% 2.5 % (17.0-45.0); MEAN CELL VOLUME 82.6 FL (83-96); MEAN CORPUSCULAR HEMOGLOBIN 25.2 PG (28-34); MEAN CORPUSCULAR HGB CONC 30.5 g/dL (30-36); MEAN PLATELET VOLUME 7.5 FL (6.5-11.5); MONOCYTE# 0.7 X10e3 (0-1.0); NEUTROPHIL# 20.7 X10e3 (1.5-7.1); NEUTROPHIL% 94.2 % (40-75); PLATELET COUNT 468 X10e3 (140-420); RED BLOOD COUNT 3.59 X10e (3.90-5.30); RED CELL DISTRIBUTION WIDTH 17.1 % (11.0-15.5)
[2016-08-07 06:02] LABS: DIFF IND YES
[2016-08-07 06:24] LABS: INR 1.8; PARTIAL THROMBOPLASTIN TIME 29.7 SECONDS (23.5-31.3); PROTHROMBIN TIME (PATIENT) 19.6 SECONDS (9.6-11.5)
[2016-08-07 06:31] LABS: ANISOCYTOSIS MOD; HYPOCHROMIA SL; PLATELET ESTIMATE NORMAL (NORMAL)
[2016-08-07 06:41] LABS: ALBUMIN SERUM 2.5 g/dL (3.5-5.0); BILIRUBIN, DIRECT 0.1 mg/dL (0.0-0.2); BILIRUBIN,INDIRECT 0.6 mg/dL (0.0-0.9); BILIRUBIN,TOTAL 0.7 mg/dL (0.2-2.0); BUN/CREATININE RATIO 21.37; CALCIUM SERUM 8.9 mg/dL (8.4-10.2); CREATININE SERUM 2.9 mg/dL (0.6-1.4); GLOM FILT RATE Estimated 17.7 mL/min (>60); PROTEIN TOTAL SERUM 7.3 g/dL (6.0-8.3)
[2016-08-07 06:45] LABS: POTASSIUM 5.7 mmol/L (3.5-5.1)
[2016-08-07 09:17] LABS: HEMATOCRIT 25.2 % (35.0-45.0); HEMOGLOBIN 7.6 gm/dL (12.0-16.0); MEAN CELL VOLUME 84.1 FL (83-96); MEAN CORPUSCULAR HEMOGLOBIN 25.3 PG (28-34); MEAN CORPUSCULAR HGB CONC 30.1 g/dL (30-36); MEAN PLATELET VOLUME 7.3 FL (6.5-11.5); RED BLOOD COUNT 2.99 X10e (3.90-5.30); RED CELL DISTRIBUTION WIDTH 17.2 % (11.0-15.5); WHITE BLOOD COUNT 17.7 X10e3 (4.0-10.5)
[2016-08-07] MEDS ORDERED: NO MEDICATIONS (09:28)
[2016-08-07 09:41] LABS: MAGNESIUM 2.5 mg/dL (1.6-3.0); PHOSPHOROUS 3.7 mg/dL (2.5-4.6)
[2016-08-07 09:54] LABS: ALBUMIN SERUM 2.2 g/dL (3.5-5.0); BILIRUBIN,TOTAL 0.7 mg/dL (0.2-2.0); CALCIUM SERUM 7.6 mg/dL (8.4-10.2); CREATININE SERUM 2.5 mg/dL (0.6-1.4); GLOM FILT RATE Estimated 21.2 mL/min (>60); POTASSIUM 4.7 mmol/L (3.5-5.1); PROTEIN TOTAL SERUM 5.8 g/dL (6.0-8.3)
[2016-08-07 11:17] LABS: URINE SOURCE CLEAN CATCH
[2016-08-07 11:25] LABS: CULTURE INDICATED? YES; URINE APPEARANCE CLOUDY; URINE BACTERIA AUWI NEG (NEGATIVE); URINE BLOOD 1+ (NEG); URINE COLOR DK YELLOW; URINE GLUCOSE 500 MG/DL (NEG); URINE KETONE 1+ (NEG); URINE LEUKOCYTE ESTERASE 1+ (NEG); URINE NITRATE POS (NEG); URINE PROTEIN 1+ (NEG); URINE SPECIFIC GRAVITY 1.019 (1.003-1.035); URINE SQUAMOUS EPITHELIAL CELL FEW /[HPF]
[2016-08-07 11:36] LABS: URINE BILIRUBIN NEG (NEG)
[2016-08-07 11:44] LABS: URINE MUCUS PRESENT
[2016-08-07 16:32] LABS: BASOPHIL% 0.2 % (0-2.5); EOSINOPHIL% 0.2 % (0.0-7.0); HEMATOCRIT 23.3 % (35.0-45.0); HEMOGLOBIN 7.3 gm/dL (12.0-16.0); LYMPHOCYTE# 0.9 X10e3 (1.0-3.5); LYMPHOCYTE% 7.1 % (17.0-45.0); MEAN CELL VOLUME 81.4 FL (83-96); MEAN CORPUSCULAR HEMOGLOBIN 25.6 PG (28-34); MEAN CORPUSCULAR HGB CONC 31.5 g/dL (30-36); MEAN PLATELET VOLUME 7.2 FL (6.5-11.5); MONOCYTE# 0.6 X10e3 (0-1.0); MONOCYTE% 4.3 % (3.0-12.0); NEUTROPHIL# 11.7 X10e3 (1.5-7.1); NEUTROPHIL% 88.2 % (40-75); PLATELET COUNT 364 X10e3 (140-420); RED BLOOD COUNT 2.86 X10e (3.90-5.30); RED CELL DISTRIBUTION WIDTH 16.9 % (11.0-15.5); WHITE BLOOD COUNT 13.2 X10e3 (4.0-10.5)
[2016-08-07 16:33] LABS: DIFF IND YES
[2016-08-07 16:39] LABS: CALCIUM SERUM 7.7 mg/dL (8.4-10.2); GLOM FILT RATE Estimated 27.8 mL/min (>60); POTASSIUM 4.1 mmol/L (3.5-5.1)
[2016-08-07] MEDS ORDERED: MULTI VITAMIN1 EACH PO (16:43)
[2016-08-07 17:24] LABS: PLATELET ESTIMATE NORMAL (NORMAL)
[2016-08-07 17:26] LABS: ANISOCYTOSIS MOD
[2016-08-07 17:27] LABS: POIKILOCYTOSIS SL; TEAR DROP CELLS PRESENT
[2016-08-07 17:28] LABS: TARGET CELLS SL
[2016-08-07 17:29] LABS: SCHISTOCYTES PRESENT
[2016-08-07 20:08] LABS: CREATININE,RANDOM URINE 148 mg/dL
[2016-08-07 20:09] LABS: SODIUM URINE RANDOM <10 mmol/L
[2016-08-08 05:44] LABS: BASOPHIL% 0.2 % (0-2.5); EOSINOPHIL% 0.3 % (0.0-7.0); HEMATOCRIT 25.7 % (35.0-45.0); HEMOGLOBIN 8.3 gm/dL (12.0-16.0); LYMPHOCYTE% 10.4 % (17.0-45.0); MEAN CELL VOLUME 82.7 FL (83-96); MEAN CORPUSCULAR HEMOGLOBIN 26.8 PG (28-34); MEAN CORPUSCULAR HGB CONC 32.4 g/dL (30-36); MEAN PLATELET VOLUME 7.3 FL (6.5-11.5); MONOCYTE# 0.4 X10e3 (0-1.0); MONOCYTE% 3.8 % (3.0-12.0); NEUTROPHIL# 8.2 X10e3 (1.5-7.1); NEUTROPHIL% 85.3 % (40-75); PLATELET COUNT 318 X10e3 (140-420); WHITE BLOOD COUNT 9.7 X10e3 (4.0-10.5)
[2016-08-08 05:50] LABS: DIFF IND NO
[2016-08-08 05:55] LABS: INR 1.7; PROTHROMBIN TIME (PATIENT) 18.1 SECONDS (9.6-11.5)
[2016-08-08 06:16] LABS: ALBUMIN SERUM 1.8 g/dL (3.5-5.0); BILIRUBIN,TOTAL 0.6 mg/dL (0.2-2.0); BUN/CREATININE RATIO 24.5; CALCIUM SERUM 7.8 mg/dL (8.4-10.2); GLOM FILT RATE Estimated 27.8 mL/min (>60); MAGNESIUM 2.1 mg/dL (1.6-3.0); PHOSPHOROUS 2.9 mg/dL (2.5-4.6); POTASSIUM 3.5 mmol/L (3.5-5.1); PROTEIN TOTAL SERUM 4.6 g/dL (6.0-8.3)
[2016-08-08 18:26] LABS: HEMOGLOBIN 7.6 gm/dL (12.0-16.0)
[2016-08-08 22:14] LABS: HEMATOCRIT 25.5 % (35.0-45.0); HEMOGLOBIN 8.3 gm/dL (12.0-16.0); MEAN CELL VOLUME 82.6 FL (83-96); MEAN CORPUSCULAR HEMOGLOBIN 26.8 PG (28-34); MEAN CORPUSCULAR HGB CONC 32.5 g/dL (30-36); MEAN PLATELET VOLUME 6.9 FL (6.5-11.5); RED BLOOD COUNT 3.09 X10e (3.90-5.30); RED CELL DISTRIBUTION WIDTH 17.6 % (11.0-15.5); WHITE BLOOD COUNT 8.2 X10e3 (4.0-10.5)
[2016-08-08 22:37] LABS: BILIRUBIN,TOTAL 0.8 mg/dL (0.2-2.0); BUN/CREATININE RATIO 22.63; CALCIUM SERUM 7.4 mg/dL (8.4-10.2); CREATININE SERUM 1.9 mg/dL (0.6-1.4); GLOM FILT RATE Estimated 29.6 mL/min (>60); MAGNESIUM 1.9 mg/dL (1.6-3.0); PHOSPHOROUS 2.5 mg/dL (2.5-4.6); POTASSIUM 3.6 mmol/L (3.5-5.1); PREALBUMIN 19.9 mg/dL (17.0-42.0); PROTEIN TOTAL SERUM 4.5 g/dL (6.0-8.3)
[2016-08-09 04:57] LABS: BASOPHIL% 0.1 % (0-2.5); EOSINOPHIL% 0.1 % (0.0-7.0); HEMATOCRIT 25.7 % (35.0-45.0); HEMOGLOBIN 8.2 gm/dL (12.0-16.0); LYMPHOCYTE# 0.2 X10e3 (1.0-3.5); LYMPHOCYTE% 2.7 % (17.0-45.0); MEAN CELL VOLUME 82.6 FL (83-96); MEAN CORPUSCULAR HEMOGLOBIN 26.3 PG (28-34); MEAN CORPUSCULAR HGB CONC 31.9 g/dL (30-36); MEAN PLATELET VOLUME 7.2 FL (6.5-11.5); MONOCYTE# 0.1 X10e3 (0-1.0); MONOCYTE% 0.8 % (3.0-12.0); NEUTROPHIL# 8.2 X10e3 (1.5-7.1); NEUTROPHIL% 96.3 % (40-75); PLATELET COUNT 264 X10e3 (140-420); RED BLOOD COUNT 3.11 X10e (3.90-5.30); RED CELL DISTRIBUTION WIDTH 17.2 % (11.0-15.5); WHITE BLOOD COUNT 8.5 X10e3 (4.0-10.5)
[2016-08-09 04:58] LABS: DIFF IND NO
[2016-08-09 05:59] LABS: ALBUMIN SERUM 1.9 g/dL (3.5-5.0); BILIRUBIN,TOTAL 0.5 mg/dL (0.2-2.0); BUN/CREATININE RATIO 21.66; CALCIUM SERUM 7.5 mg/dL (8.4-10.2); CREATININE SERUM 1.8 mg/dL (0.6-1.4); GLOM FILT RATE Estimated 31.6 mL/min (>60); MAGNESIUM 1.8 mg/dL (1.6-3.0); PHOSPHOROUS 3.3 mg/dL (2.5-4.6); POTASSIUM 3.9 mmol/L (3.5-5.1); PROTEIN TOTAL SERUM 5.1 g/dL (6.0-8.3)
[2016-08-10 06:15] LABS: BASOPHIL% 0.1 % (0-2.5); HEMATOCRIT 27.1 % (35.0-45.0); HEMOGLOBIN 8.6 gm/dL (12.0-16.0); LYMPHOCYTE# 0.3 X10e3 (1.0-3.5); MEAN CELL VOLUME 82.8 FL (83-96); MEAN CORPUSCULAR HEMOGLOBIN 26.4 PG (28-34); MEAN CORPUSCULAR HGB CONC 31.8 g/dL (30-36); MEAN PLATELET VOLUME 7.6 FL (6.5-11.5); MONOCYTE# 0.3 X10e3 (0-1.0); MONOCYTE% 3.6 % (3.0-12.0); NEUTROPHIL# 7.7 X10e3 (1.5-7.1); NEUTROPHIL% 92.3 % (40-75); PLATELET COUNT 289 X10e3 (140-420); RED BLOOD COUNT 3.27 X10e (3.90-5.30); RED CELL DISTRIBUTION WIDTH 17.4 % (11.0-15.5); WHITE BLOOD COUNT 8.3 X10e3 (4.0-10.5)
[2016-08-10 06:16] LABS: DIFF IND NO
[2016-08-10 06:27] LABS: INR 1.3; PROTHROMBIN TIME (PATIENT) 13.4 SECONDS (9.6-11.5)
[2016-08-10 07:04] LABS: ALBUMIN SERUM 1.9 g/dL (3.5-5.0); BILIRUBIN,TOTAL 0.4 mg/dL (0.2-2.0); BUN/CREATININE RATIO 24.11; CALCIUM SERUM 7.6 mg/dL (8.4-10.2); CREATININE SERUM 1.7 mg/dL (0.6-1.4); GLOM FILT RATE Estimated 33.8 mL/min (>60); POTASSIUM 3.8 mmol/L (3.5-5.1); PROTEIN TOTAL SERUM 4.7 g/dL (6.0-8.3)
[2016-08-11 08:02] LABS: HEMATOCRIT 27.5 % (35.0-45.0); HEMOGLOBIN 8.8 gm/dL (12.0-16.0); MEAN CORPUSCULAR HEMOGLOBIN 26.5 PG (28-34); MEAN PLATELET VOLUME 7.7 FL (6.5-11.5); RED BLOOD COUNT 3.31 X10e (3.90-5.30); RED CELL DISTRIBUTION WIDTH 17.6 % (11.0-15.5); WHITE BLOOD COUNT 8.5 X10e3 (4.0-10.5)
[2016-08-11 08:36] LABS: ALBUMIN SERUM 2.5 g/dL (3.5-5.0); BILIRUBIN,TOTAL 0.7 mg/dL (0.2-2.0); BUN/CREATININE RATIO 32.3; CALCIUM SERUM 7.8 mg/dL (8.4-10.2); CREATININE SERUM 1.3 mg/dL (0.6-1.4); GLOM FILT RATE Estimated 46.8 mL/min (>60); MAGNESIUM 1.5 mg/dL (1.6-3.0); PHOSPHOROUS 2.6 mg/dL (2.5-4.6); POTASSIUM 3.2 mmol/L (3.5-5.1); PROTEIN TOTAL SERUM 5.1 g/dL (6.0-8.3)
[2016-08-12 02:32] LABS: COMPLEMENT C3 55 mg/dL (90-180); COMPLEMENT C4 12 mg/dL (16-47)
[2016-08-12 08:46] LABS: HEMATOCRIT 28.8 % (35.0-45.0); HEMOGLOBIN 9.2 gm/dL (12.0-16.0); MEAN CELL VOLUME 82.1 FL (83-96); MEAN CORPUSCULAR HEMOGLOBIN 26.3 PG (28-34); MEAN CORPUSCULAR HGB CONC 32.1 g/dL (30-36); MEAN PLATELET VOLUME 7.8 FL (6.5-11.5); RED BLOOD COUNT 3.51 X10e (3.90-5.30); RED CELL DISTRIBUTION WIDTH 18.4 % (11.0-15.5); WHITE BLOOD COUNT 14.9 X10e3 (4.0-10.5)
[2016-08-12 09:47] LABS: ALBUMIN SERUM 2.4 g/dL (3.5-5.0); BILIRUBIN,TOTAL 0.6 mg/dL (0.2-2.0); BUN/CREATININE RATIO 30.83; CALCIUM SERUM 7.5 mg/dL (8.4-10.2); CREATININE SERUM 1.2 mg/dL (0.6-1.4); GLOM FILT RATE Estimated 51.6 mL/min (>60); MAGNESIUM 1.7 mg/dL (1.6-3.0); PHOSPHOROUS 1.5 mg/dL (2.5-4.6); POTASSIUM 3.4 mmol/L (3.5-5.1)
[2016-08-12 19:42] LABS: MYELOPEROXIDASE AB (PNL) <1.0 AI (<1.0); PROTEINASE-3 AB (PNL) <1.0 AI (<1.0)
[2016-08-13 06:39] LABS: HEMATOCRIT 27.7 % (35.0-45.0); HEMOGLOBIN 8.8 gm/dL (12.0-16.0); MEAN CELL VOLUME 82.9 FL (83-96); MEAN CORPUSCULAR HEMOGLOBIN 26.4 PG (28-34); MEAN CORPUSCULAR HGB CONC 31.8 g/dL (30-36); MEAN PLATELET VOLUME 7.6 FL (6.5-11.5); RED BLOOD COUNT 3.35 X10e (3.90-5.30); RED CELL DISTRIBUTION WIDTH 18.5 % (11.0-15.5); WHITE BLOOD COUNT 15.9 X10e3 (4.0-10.5)
[2016-08-13 07:53] LABS: ALBUMIN SERUM 2.1 g/dL (3.5-5.0); BILIRUBIN,TOTAL 0.5 mg/dL (0.2-2.0); CALCIUM SERUM 7.7 mg/dL (8.4-10.2); CREATININE SERUM 0.9 mg/dL (0.6-1.4); MAGNESIUM 2.4 mg/dL (1.6-3.0); PHOSPHOROUS 2.7 mg/dL (2.5-4.6); PROTEIN TOTAL SERUM 4.4 g/dL (6.0-8.3)
[2016-08-14 04:54] LABS: HEMATOCRIT 26.4 % (35.0-45.0); HEMOGLOBIN 8.5 gm/dL (12.0-16.0); MEAN CELL VOLUME 82.5 FL (83-96); MEAN CORPUSCULAR HEMOGLOBIN 26.5 PG (28-34); MEAN CORPUSCULAR HGB CONC 32.1 g/dL (30-36); MEAN PLATELET VOLUME 7.4 FL (6.5-11.5); RED BLOOD COUNT 3.2 X10e (3.90-5.30); WHITE BLOOD COUNT 13.7 X10e3 (4.0-10.5)
[2016-08-14 06:00] LABS: ALBUMIN SERUM 2.6 g/dL (3.5-5.0); BILIRUBIN,TOTAL 0.9 mg/dL (0.2-2.0); BUN/CREATININE RATIO 27.27; CALCIUM SERUM 7.8 mg/dL (8.4-10.2); CREATININE SERUM 1.1 mg/dL (0.6-1.4); GLOM FILT RATE Estimated 57.3 mL/min (>60); MAGNESIUM 2.1 mg/dL (1.6-3.0); PHOSPHOROUS 3.1 mg/dL (2.5-4.6)
[2016-08-15 05:53] LABS: HEMATOCRIT 24.3 % (35.0-45.0); HEMOGLOBIN 7.8 gm/dL (12.0-16.0); MEAN CELL VOLUME 83.7 FL (83-96); MEAN CORPUSCULAR HEMOGLOBIN 26.7 PG (28-34); MEAN CORPUSCULAR HGB CONC 31.9 g/dL (30-36); MEAN PLATELET VOLUME 7.8 FL (6.5-11.5); RED BLOOD COUNT 2.91 X10e (3.90-5.30); RED CELL DISTRIBUTION WIDTH 18.4 % (11.0-15.5); WHITE BLOOD COUNT 13.9 X10e3 (4.0-10.5)
[2016-08-15 06:54] LABS: ALBUMIN SERUM 2.2 g/dL (3.5-5.0); BILIRUBIN,TOTAL 0.3 mg/dL (0.2-2.0); CALCIUM SERUM 7.7 mg/dL (8.4-10.2); CREATININE SERUM 1.2 mg/dL (0.6-1.4); GLOM FILT RATE Estimated 51.6 mL/min (>60); MAGNESIUM 2.2 mg/dL (1.6-3.0); PHOSPHOROUS 3.8 mg/dL (2.5-4.6); POTASSIUM 4.6 mmol/L (3.5-5.1); PROTEIN TOTAL SERUM 4.2 g/dL (6.0-8.3)
[2016-08-17 14:11] LABS: ANA SCREEN Negative (Negative)
== END 2016-08-15 15:45 | DRG 871 ==
LOC: CED 03:58 → CEDOF 07:47 → C3A PCU 09:00 → CICCU2 09:00 → CICCU3 16:17 → CICCU2 22:39 → C3A PCU 08-09 22:01
PROVIDERS: Emergency Medicine; Internal Medicine; Internal Medicine Cardiovascular Disease; Internal Medicine Gastroenterology; Internal Medicine Nephrology; Surgery
PROC: 30233N1 Transfusion of Nonautologous Red Blood Cells into Peripheral Vein, Percutaneous Approach (ICD-10-PCS; 2016-08-07)
PROC: 0DBP8ZX Excision of Rectum, Via Natural or Artificial Opening Endoscopic, Diagnostic (ICD-10-PCS; 2016-08-08)
PROC: 0DBN8ZX Excision of Sigmoid Colon, Via Natural or Artificial Opening Endoscopic, Diagnostic (ICD-10-PCS; 2016-08-08)
PROC: 0DBK8ZX Excision of Ascending Colon, Via Natural or Artificial Opening Endoscopic, Diagnostic (ICD-10-PCS; 2016-08-08)
PROC: 0DBH8ZX Excision of Cecum, Via Natural or Artificial Opening Endoscopic, Diagnostic (ICD-10-PCS; 2016-08-08)
PROC: 02HV33Z Insertion of Infusion Device into Superior Vena Cava, Percutaneous Approach (ICD-10-PCS; 2016-08-08)
PROC: 4A02X4A Measurement of Cardiac Electrical Activity, Guidance, External Approach (ICD-10-PCS; 2016-08-08)
PROC: 0DBB8ZX Excision of Ileum, Via Natural or Artificial Opening Endoscopic, Diagnostic (ICD-10-PCS; principal; 2016-08-08 19:30)
PROC: 0DBM8ZX Excision of Descending Colon, Via Natural or Artificial Opening Endoscopic, Diagnostic (ICD-10-PCS; 2016-08-08 19:30)
PROC: B24BYZZ Ultrasonography of Heart with Aorta using Other Contrast (ICD-10-PCS; 2016-08-12)
PROC: 4A023N7 Measurement of Cardiac Sampling and Pressure, Left Heart, Percutaneous Approach (ICD-10-PCS; 2016-08-14)
PROC: B211YZZ Fluoroscopy of Multiple Coronary Arteries using Other Contrast (ICD-10-PCS; 2016-08-14)
PROC: B215YZZ Fluoroscopy of Left Heart using Other Contrast (ICD-10-PCS; 2016-08-14)
DX: A41.9 Sepsis, unspecified organism (principal); R65.21 Severe sepsis with septic shock; N17.0 Acute kidney failure with tubular necrosis; E43 Unspecified severe protein-calorie malnutrition; G92 Toxic encephalopathy; I50.21 Acute systolic (congestive) heart failure; E87.2 Acidosis; D62 Acute posthemorrhagic anemia; E86.0 Dehydration; F33.1 Major depressive disorder, recurrent, moderate; F05 Delirium due to known physiological condition; K51.00 Ulcerative (chronic) pancolitis without complications; E87.1 Hypo-osmolality and hyponatremia; R41.0 Disorientation, unspecified; E11.65 Type 2 diabetes mellitus with hyperglycemia; F41.9 Anxiety disorder, unspecified; E87.6 Hypokalemia; E83.42 Hypomagnesemia; E83.39 Other disorders of phosphorus metabolism; E55.9 Vitamin D deficiency, unspecified; Z68.39 Body mass index [BMI] 39.0-39.9, adult; Z91.19 Patient's noncompliance with other medical treatment and regimen; E66.01 Morbid (severe) obesity due to excess calories
CPT/HCPCS: 71010; 74176; 80048; 80053; 80061; 80076; 81003; 82140; 82150; 82306; 82570; 82652; 82947; 83010; 83036; 83605; 83615; 83690; 83735; 83880; 84100; 84134; 84156; 84300; 84443; 84478; 84484; 85014; 85018; 85025; 85027; 85610; 85730; 86021; 86038; 86039; 86160; 86850; 86900; 86901; 86923; 87040; 87086; 87177; 87209; 87427; 87493; 88305; 93005; 93306; 94760; 96365; 97110; 97163; 97167; 97530; 97535; 99291; C1769; C1887; C1894; J0610; J1644; J1815; J1940; J2248; J2250; J2270; J2405; J2543; J2550; J2930; J2997; J3010; J3370; J3475; J3480; P9016; P9047

== ENCOUNTER → 2016-12-02 | Outpatient (CLI) | payer OTHER ==
[~2016-12-02] MED LIST: MULTI VITAMIN1 EACH PO; NO MEDICATIONS
--- NOTE | ~2016-12-02 | CR63 ---
[facility] A Service of [facility] & [facility] RADIOLOGY TEXT RESULTS PATIENT: ALAN LAST LOCATION: [facility] : [birth year] UNIT #: [id number] AGE: [address]: DEBI NUNO APRN SEX: F ORDER DR: [id number] [facility] [address] [facility]. [place], [place] [address] [id number] MR#: [id number] Acc #: [id number] NAME: ALAN LAST : 1965 SEX: F STUDY DATE/TIME: 12/02/2016 14:22 UNIT: [facility] ROOM: STUDY DESCRIPTION: CR Chest 2 View Attending Physician: Debi Nuno Np Referring Physician: Debi Nuno Np Ordering Physician: Debi Nuno Np Primary Care Physician: Debi Nuno Np MEDICAL IMAGING REPORT This report is preliminary unless electronic signature is present EXAM Chest x-ray 12/02 INDICATIONS Shortness of air and cough for 1 month. FINDINGS Two views of the chest are compared with 08/13/2016. Lung volumes remain low. There is mild bibasilar atelectasis or scarring. Lungs otherwise are clear. There is no pneumothorax. Cardiac and mediastinal contours are within normal limits. IMPRESSION Low-volume inspiration with bibasilar atelectasis or scarring. Dictated by... Ronal Roblero Jr., M.D. THIS IS AN ELECTRONICALLY VERIFIED REPORT Ronal Roblero Jr., M.D. at 12/03/2016 3:38 PM SMILEY/triston TD: 12/03/2016 13:46 JOB #: [id number] MEDICAL IMAGING REPORT Page 1 of 1 COPY
== END | disposition home or self-care (01) ==
LOC: CRAD 14:13
DX: R06.00 Dyspnea, unspecified (principal)
CPT/HCPCS: 71020